=== PATIENT | female | born 1965 | race Caucasian/White ===

== ENCOUNTER → 2016-10-25 | Outpatient (CLI) | payer BC ==
--- NOTE | 2016-10-29 12:06 | Pulmonary Function Test ---
Pulmonary Function Test Date of Procedure:: 10/25/16 INDICATION:: Dyspnea Referring Provider: Dr. Moo Taylor Software Systems Engineer: Luisa Jorgensen THEATER MANAGER - Report Spirometry: FVC 3.13 L 102% FEV1 2.48 L 97% FEV1/FVC % 79 predicted 84 Impression: Study does not meet strict criteria for obstructive ventilatory defect; there is strong evidence for small airways disease
== END ==
LOC: RT 13:23
PROVIDERS: ATTEND Internal Medicine Pulmonary Disease
DX: R05 Cough (principal)
CPT/HCPCS: 94010

== ENCOUNTER 2019-05-05 07:44 | Emergency (ER) | payer BC ==
[2019-05-05] MEDS ORDERED: NORMAL SALINE 1000 ML 1,000 ML IV ONE (08:42)
[2019-05-05] MEDS ORDERED: MECLIZINE HCL 25 MG TABLET PO ONE (08:43)
[2019-05-05] MEDS ORDERED: ONDANSETRON HCL INJ/PF 4 MG/2 ML SDV IV ONE (08:43)
--- NOTE | 2019-05-05 08:51 | ER Document Report ---
ED Dizziness/Weakness - General Chief Complaint: Dizziness Stated Complaint: DIZZINESS Time Seen by Provider: 05/05/19 08:12 Primary Care Provider: VICENTE WILLIAM FNP [Primary Care Provider] - Follow up tomorrow Information source: Patient Notes: Patient states that she was getting ready for work today and developed a sudden onset of dizziness in which the room was spinning. Patient states that symptoms worsen with standing and improved with lying down. Patient does report nausea although denies any vomiting. Patient denies any headache chest pain shortness of breath or abdominal pain. Patient does report recent sinus pressure for the past 4 days. No fever. TRAVEL OUTSIDE OF THE [place] IN LAST 30 DAYS: No - HPI Patient complains to provider of: Dizziness, Vertigo Onset: This morning Onset/Duration: Sudden Quality of pain: No pain Pain Level: Denies Context: denies: Chronic dizziness Associated symptoms: Nausea, Vertigo. 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 Denies: Hx Cerebrovascular Accident, Hx Seizures Renal/ Medical History: Denies: Hx Peritoneal Dialysis Musculoskeletal Medical History: Reports Hx Arthritis - osteo Past Surgical History: Reports: Hx Appendectomy, Hx Section, Hx Hysterectomy, Hx Orthopedic Surgery - Immunizations Hx Diphtheria, Pertussis, Tetanus Vaccination: No Review of Systems - Review of Systems Constitutional: Recent illness - Recent sinus congestion and pressure symptoms. denies: Fever EENT: Nose congestion, Sinus pressure. denies: Eye pain, Blurred vision, Throat pain Cardiovascular: Dizziness. denies: Chest pain, Palpitations Respiratory: No symptoms reported. denies: Cough, Short of breath Gastrointestinal: Nausea. denies: Abdominal pain, Vomiting Genitourinary: No symptoms reported Female Genitourinary: No symptoms reported Musculoskeletal: No symptoms reported. denies: Back pain Skin: No symptoms reported Hematologic/Lymphatic: No symptoms reported Neurological/Psychological: No symptoms reported. denies: Confusion, Headaches Physical Exam - Vital signs Vitals: Temp Pulse Resp BP Pulse Ox 97.7 F 63 16 134/76 H 100 05/05/19 07:47 05/05/19 07:47 05/05/19 07:47 05/05/19 07:47 05/05/19 07:47 - General General appearance: Appears well, Alert In distress: None - HEENT Head: Normocephalic, Atraumatic Eyes: Normal Conjunctiva: Normal Extraocular movements intact: Yes - no nystagmus Eyelashes: Normal Pupils: PERRL Ears: Normal External canal: Normal Nasal: Normal Mouth/Lips: Normal Mucous membranes: Normal Pharynx: Normal Neck: Normal, Supple. No: Lymphadenopathy, Meningismus - Respiratory Respiratory status: No respiratory distress Chest status: Nontender Breath sounds: Normal. No: Rales, Rhonchi, Stridor, Wheezing Chest palpation: Normal - Cardiovascular Rhythm: Regular Heart sounds: S1 appreciated, S2 appreciated Murmur: No - Abdominal Inspection: Obese Distension: No distension Bowel sounds: Normal Tenderness: Nontender Organomegaly: No organomegaly - Back Back: Normal, Nontender - Extremities General upper extremity: Normal inspection, Normal ROM General lower extremity: Normal inspection, Normal ROM - Neurological Neuro grossly intact: Yes Cognition: Normal Orientation: AAOx4 Janet Coma Scale Eye Opening: Spontaneous Janet Coma Scale Verbal: Oriented Janet Coma Scale Motor: Obeys Commands Janet Coma Scale Total: 15 Speech: Normal. No: Dysarthria - Psychological Associated symptoms: Normal affect, Normal mood - Skin Skin Temperature: Warm Skin Moisture: Dry Skin Color: Normal Course - Re-evaluation Re-evalutation: 05/05/19 12:26 Patient reports that nausea has resolved although upon standing patient continues with dizziness. Patient continues to deny any pain symptoms at this time. Additional medications ordered. 05/05/19 12:[address] Kingston regarding patient presentation and diagnostic evaluation. Patient presents with vertigo symptoms with a recent sinus congestion symptoms. Patient with gait unsteadiness with standing as this elicits her vertiginous symptoms, no other focal neurologic deficits. No headache pain. Dr. Kingston agrees with plan for symptomatic treatment. No additional diagnostic studies ordered at this time. No concern for acute CVA at this time. 05/05/19 12:32 05/05/19 14:44 Patient continues to deny any nausea symptoms at this time. Patient without any vertiginous symptoms at this time after dose of Lorazepam. Discussed with patient importance of resuming her Singulair as well as continuing her nasal corticosteroid. Patient states that meclizine is an antihistamine but when she is not taking that medication she should take her usual antihistamine that she takes for allergies. Discussed with patient worsening signs or symptoms that patient should return immediately for. Patient verbalized understanding and is agreeable with discharge plan of care at this time. - Vital Signs Vital signs: Temp Pulse Resp BP Pulse Ox 97.7 F 63 14 117/82 100 05/05/19 07:47 05/05/19 07:47 05/05/19 14:53 05/05/19 14:53 05/05/19 14:53 - Laboratory Result Diagrams: 05/05/19 10:45 05/05/19 10:45 Laboratory results interpreted by me: 05/05/19 10:45 AST 42 H Alkaline Phosphatase 172 H Labs- Entire Visit 05/05/19 05/05/19 10:45 10:45 WBC 7.9 RBC 4.53 Hgb 14.1 Hct 42.1 MCV 93 MCH 31.2 MCHC 33.5 RDW 12.8 Plt Count 330 Seg Neutrophils % 74.9 Lymphocytes % 19.7 Monocytes % 4.8 Eosinophils % 0.2 Basophils % 0.4 Absolute Neutrophils 5.9 Absolute Lymphocytes 1.6 Absolute Monocytes 0.4 Absolute Eosinophils 0.0 Absolute Basophils 0.0 Sodium 142.5 Potassium 4.3 Chloride 102 Carbon Dioxide 29 Anion Gap 12 BUN 9 Creatinine 0.65 Est GFR ( Amer) > 60 Est GFR (Non-Af Amer) > 60 Glucose 92 Calcium 9.6 Total Bilirubin 0.5 Direct Bilirubin 0.2 Neonat Total Bilirubin Not Reportable Neonat Direct Bilirubin Not Reportable Neonat Indirect Bili Not Reportable AST 42 H ALT 39 Alkaline Phosphatase 172 H Total Protein 7.3 Albumin 4.7 Discharge - Discharge Clinical Impression: Vertigo, Nausea, Sinus congestion Condition: Stable Disposition: HOME, SELF-CARE Instructions: Antinausea Medication ([facility]), Meclizine ([facility]), Vertigo ([facility]) Additional Instructions: Return immediately for any new or worsening symptoms Followup with your primary care provider, call tomorrow to make a followup appointment Resume taking your Singulair as prescribed as well as your nasal corticosteroid inhaler. Prescriptions: Meclizine HCl [Antivert 25 mg Tablet] 25 mg PO ASDIR PRN #15 tablet PRN Reason: Ondansetron HCl [Zofran 4 mg Tablet] 1 - 2 tab PO Q6 PRN #15 tablet PRN Reason: Forms: Return to Work Referrals: VICENTE WILLIAM FNP [Primary Care Provider] - Follow up tomorrow
--- NOTE | 2019-05-05 10:12 | EKG REPORT ---
SEVERITY:- NORMAL ECG - SINUS RHYTHM : Confirmed by: Nena Hendrix MD 05-May-2019 10:11:20
[2019-05-05 11:07] LABS: ABSOLUTE LYMPHOCYTES (AUTO) 1.6 10^3/uL (0.5-4.7); ABSOLUTE MONOCYTES (AUTO) 0.4 10^3/uL (0.1-1.4); ABSOLUTE NEUT (AUTO) 5.9 10^3/uL (1.7-8.2); BASOPHILS % (AUTO) 0.4 % (0-2); EOSINOPHILS % (AUTO) 0.2 % (0-6); HEMATOCRIT 42.1 % (36.0-47.0); HEMOGLOBIN 14.1 g/dL (12.0-15.5); LYMPHOCYTES % (AUTO) 19.7 % (13-45); MEAN CORPUSCULAR HEMOGLOBIN 31.2 pg (27.0-33.4); MEAN CORPUSCULAR HGB CONC 33.5 g/dL (32.0-36.0); MEAN CORPUSCULAR VOLUME 93 fl (80-97); MONOCYTES % (AUTO) 4.8 % (3-13); PLATELET COUNT 330 10^3/uL (150-450); RED BLOOD COUNT 4.53 10^6/uL (3.72-5.28); RED CELL DISTRIBUTION WIDTH 12.8 % (11.5-14.0); SEGMENTED NEUTROPHILS % (AUTO) 74.9 % (42-78); TOTAL CELLS COUNTED % (AUTO) 100 %; WHITE BLOOD COUNT 7.9 10^3/uL (4.0-10.5)
[2019-05-05 11:29] LABS: ALBUMIN 4.7 g/dL (3.5-5.0); ALKALINE PHOSPHATASE 172 U/L (38-126); ANION GAP 12 (5-19); ASPARTATE AMINO TRANSFERASE 42 U/L (14-36); BILIRUBIN,DIRECT 0.2 mg/dL (0.0-0.4); BILIRUBIN,TOTAL 0.5 mg/dL (0.2-1.3); BLOOD UREA NITROGEN 9 mg/dL (7-20); CALCIUM 9.6 mg/dL (8.4-10.2); CARBON DIOXIDE 29 mmol/L (22-30); CHLORIDE 102 mmol/L (98-107); GLUCOSE 92 mg/dL (75-110); POTASSIUM 4.3 mmol/L (3.6-5.0); TOTAL PROTEIN 7.3 g/dL (6.3-8.2)
[2019-05-05] MEDS ORDERED: LORAZEPAM INJ 2 MG/1 ML VIAL IV ONE (12:26)
[2019-05-05 15:09] VITALS: BP 117/82
== END 2019-05-05 15:06 | disposition home or self-care (01) ==
LOC: ER 07:44
DX: R42 Dizziness and giddiness (principal); R11.0 Nausea; R07.81 Pleurodynia
CPT/HCPCS: 93005; 36415; 85025; 80053; 93010; J2060; J2405; J7030; 96361; 96374; 96375; 99284